=== PATIENT | male | born 1995 | race Caucasian/White ===

== ENCOUNTER 2019-04-20 13:07 | Emergency (ER) | payer BC ==
[~2019-04-20] VITALS: Ht 190.5 cm; Wt 75.7 kg
[2019-04-20 13:34] VITALS: BP 156/103; Ht 190.5 cm; Wt 75.7 kg
[2019-04-20 16:02] LABS: microscopic required? NO
[2019-04-20 16:08] LABS: UA SPECIFIC GRAVITY <=1.005 (1.005-1.035); urine erythrocyte NEGATIVE (NEGATIVE)
== END 2019-04-20 16:57 | disposition home or self-care (01) ==
LOC: ED 13:07
PROVIDERS: Emergency Medicine
DX: N50.812 Left testicular pain (principal); N50.811 Right testicular pain; R10.30 Lower abdominal pain, unspecified
CPT/HCPCS: 87491; 87591; J0696